=== PATIENT | female | born 1995 ===

== ENCOUNTER 2019-01-01 10:13 | Emergency (ER) | payer SELFPAY ==
[~2019-01-01] VITALS: Ht 149.9 cm; Wt 56.7 kg
[2019-01-01 10:18] VITALS: BP 148/90
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
[2019-01-01] MEDS ORDERED: Tetanus/Diptheria/Pertussis IM ONE (10:45)
--- NOTE | 2019-01-01 10:45 | NUR ---
ED Nurse Note: pt went to x-ray in stable condition.
--- NOTE | 2019-01-01 10:54 | Diagnostic Imaging Report ---
EXAM: XR Chest, 1 View CLINICAL HISTORY: CP TECHNIQUE: Frontal view of the chest. COMPARISON: No relevant prior studies available. FINDINGS: Lungs: No consolidation. Pleural space: Unremarkable. No pneumothorax. Heart: Unremarkable. No cardiomegaly. Mediastinum: Unremarkable. Bones/joints: No acute fracture. IMPRESSION: No acute cardiopulmonary disease.
--- NOTE | 2019-01-01 10:58 | NUR ---
ED Nurse Note: pt came back from x-ray in stable condition.
[2019-01-01] MEDS ORDERED: IBUPROFEN600 MG ORAL (11:09)
[2019-01-01] MEDS ORDERED: BACITRACIN ZIN1 EACH TOPIC (11:09)
[2019-01-01] MEDS ORDERED: Neosporin Oint Ud Pkt TOPIC ONE (11:15)
--- NOTE | 2019-01-01 11:15 | Diagnostic Imaging Report ---
EXAM: XR Cervical Spine, 2 or 3 Views CLINICAL HISTORY: PAIN TECHNIQUE: Frontal and lateral views of the cervical spine. COMPARISON: No relevant prior studies available. FINDINGS: Vertebrae: No acute fracture or malalignment. Degenerative changes Disc spaces: No acute findings. Soft tissues: No radiodense foreign body. IMPRESSION: No fracture or malalignment.
[2019-01-01 11:38] VITALS: BP 140/86
--- NOTE | 2019-01-01 11:38 | NUR ---
ER DISCHARGE NOTE: Patient is cleared to be discharged per ERMD, pt is aox4, on room air, with stable vital signs. pt was given dc and prescription instructions, pt was able to verbalize understanding, pt id band removed without complications. pt is able to ambulate with steady gait. pt took all belongings.
== END 2019-01-01 11:38 | disposition home or self-care (01) ==
LOC: EMR 11:35
DX: M54.2 Cervicalgia (principal); S50.812A Abrasion of left forearm, initial encounter; S50.811A Abrasion of right forearm, initial encounter; R07.9 Chest pain, unspecified; Z23 Encounter for immunization; V43.52XA Car driver injured in collision with other type car in traffic accident, initial encounter; Y92.9 Unspecified place or not applicable
CPT/HCPCS: 71045; 72040; 90471; 90715; 99284